=== PATIENT | male | born 1995 | race Caucasian/White ===

== ENCOUNTER 2019-06-29 19:20 | Emergency (ER) | payer BC ==
[2019-06-29 19:49] VITALS: BP 132/94
--- NOTE | 2019-06-29 20:05 | UC ---
Laceration HPI - HPI Summary HPI Summary: Patient is a 24-year-old male presented with father for left thumb laceration that occurred 2 hours ago while skinning a deer. He notes pain at first but denies pain currently. Denies decreased range of motion and strength. Denies numbness and tingling. States the laceration bled immediately but he has gotten it to stop. UTD on tetanus. - History Of Current Complaint Chief Complaint: UCLaceration Stated Complaint: THUMB LAC Hx Obtained From: Patient Severity: Mild Pain Intensity: 3 Pain Scale Used: 0-10 Numeric - Allergies/Home Medications Allergies/Adverse Reactions: Allergies Allergy/AdvReac Type Severity Reaction Status Date / Time No Known Allergies Allergy Verified 06/29/19 19:40 Home Medications: Home Medications NK [No Home Medications Reported] 06/29/19 [History Confirmed 06/29/19] PMH/Surg Hx/FS Hx/Imm Hx Previously Healthy: Yes - Surgical History Surgical History: None - Family History Known Family History: Positive: Unknown, Non-Contributory - Social History Occupation: Employed Full-time Lives: With Family Alcohol Use: None Substance Use Type: None Smoking Status (MU): Light Every Day Tobacco Smoker Type: Smokeless Tobacco Review of Systems All Other Systems Reviewed And Are Negative: No Constitutional: Positive: Negative Skin: Positive: Other - L thumb laceration Respiratory: Positive: Negative Cardiovascular: Positive: Negative Musculoskeletal: Positive: Negative. Negative: Arthralgia, Decreased ROM, Edema Neurological: Negative: Weakness, Paresthesia, Numbness Physical Exam Triage Information Reviewed: Yes Appearance: Well-Appearing, No Pain Distress, Well-Nourished Vital Signs: Initial Vital Signs Temp 98.6 F 06/29/19 19:42 Pulse 102 06/29/19 19:42 Resp 16 06/29/19 19:42 BP 132/94 06/29/19 19:42 Pulse Ox 100 06/29/19 19:42 Vital Signs Reviewed: Yes Eyes: Positive: Conjunctiva Clear ENT: Positive: Hearing grossly normal Neck: Positive: Supple Respiratory: Positive: No respiratory distress Cardiovascular: Positive: Pulses Normal, Brisk Capillary Refill Musculoskeletal: Positive: Strength Intact, ROM Intact - thumb flexion and extension intact, No Edema, Other: - no tenderness to palpation Psychological: Positive: Age Appropriate Behavior Skin: Positive: Other - 1.5cm superficial laceration noted on dorsal aspect of L proximal thumb. no active bleeding Laceration Repair - Laceration Repair 1 Description: Linear Laceration Size After Repair: Length (cm) - 1.5 Type Injection: Local Anesthesia Used: 1.0% Lido Cleansing Completed Via Routine Prep: Yes Irrigation With Pressure Irrigation Device: Yes Closure Material: Sutures - 2 Closure Method: Single Layer Suture Of: Skin Suture Type: Prolene - 4-0 Laceration Course/Dx - Course/Dx Course Of Treatment: I placed 2 sutures in the thumb. Patient tolerated procedure well. A dressing was then applied. Educated on wound and suture care and instructed to return in 7-10 days for suture removal. Patient voiced understanding and agreed with the treatment plan. - Diagnosis Provider Diagnosis: Laceration of left thumb without complication Discharge ED - Sign-Out/Discharge Documenting (check all that apply): Patient Departure All imaging exams completed and their final reports reviewed: No Studies - Discharge Plan Condition: Stable Disposition: HOME Patient Education Materials: Care For Your Stitches (ED), Finger Laceration (ED ) Referrals: Rolando Dawson MD [Primary Care Provider] - If Needed Additional Instructions: You received 2 stitches today. Keep your stitches clean and dry for the first 24-48 hours. After that, you may wash gently with soap and water daily. Your stitches will not absorb. Return or follow up with your PCP in 7-10 days to have your stitches removed. You may take over the counter pain medications as directed for pain relief. Go to the emergency department if you experience fever, redness, swelling, fluid drainage, or nausea and vomiting. - Billing Disposition and Condition Condition: STABLE Disposition: Home
[2019-06-29] MEDS ORDERED: Lidocaine 1% MPF ** 5 ML VIAL INJ ONE (20:10)
== END 2019-06-29 20:45 | disposition home or self-care (01) ==
LOC: UCEAST 19:20
DX: S61.012A Laceration without foreign body of left thumb without damage to nail, initial encounter (principal); F17.290 Nicotine dependence, other tobacco product, uncomplicated; X58.XXXA Exposure to other specified factors, initial encounter; Y93.89 Activity, other specified; Y92.9 Unspecified place or not applicable
CPT/HCPCS: 12001; 99202; G0463